=== PATIENT | female | born 1990 | race Native Hawaiian/Other Pacific Islander ===

== ENCOUNTER 2019-04-04 12:06 | Emergency (ER) | payer OTHER ==
[2019-04-04 12:18] VITALS: BP 97/58; PULSE 54; RESP 18; TEMP 97.6; O2SAT 100
--- NOTE | 2019-04-04 13:10 | ED PDOC ---
HPI: Abdomen Time Seen by Provider: 04/04/19 12:40 Chief Complaint (Nursing): Abdominal Pain Chief Complaint (Provider): abdominal pain History Per: Patient History/Exam Limitations: no limitations Additional Complaint(s): 29 y/o F with no significant PMH who was brought in by ambulance due to severe lower abdominal pain that began with feeling lightheaded and becoming diaphoretic about 1hr prior to arrival. Pt then developed severe lower abdominal pain that lasted about 30 minutes prompting her to call an ambulance. She denies fever, N/V, diarrhea, dysuria, urinary frequency, vaginal discharge. Last normal BM was yesterday. She states that she is due to receive her menstrual period today but has not started bleeding yet. Currently states that she feels better and would like to go home. Past Medical History Reviewed: Historical Data, Nursing Documentation, Vital Signs Vital Signs: Last Vital Signs Temp 97.6 F 04/04/19 12:15 Pulse 54 L 04/04/19 12:15 Resp 18 04/04/19 12:15 BP 97/58 L 04/04/19 12:15 Pulse Ox 100 04/04/19 12:15 Primary Care Provider: DoctorClaire - Medical History PMH: No Chronic Diseases - Surgical History Surgical History: No Surg Hx - Family History Family History: States: Unknown Family Hx - Allergies Allergies/Adverse Reactions: Allergies Allergy/AdvReac Type Severity Reaction Status Date / Time No Known Allergies Allergy Verified 04/04/19 12:14 Review of Systems Constitutional: Negative for: Fever Gastrointestinal: Positive for: Abdominal Pain. Negative for: Nausea, Vomiting, Diarrhea, Constipation Genitourinary Female: Negative for: Dysuria, Frequency, Vaginal Discharge, Vaginal Bleeding Physical Exam - Reviewed Nursing Documentation Reviewed: Yes Vital Signs Reviewed: Yes - Physical Exam Appears: Positive for: Uncomfortable Skin: Positive for: Pallor Eye Exam: Negative for: Conjunctival injection (pale conjunctiva) Cardiovascular/Chest: Positive for: Regular Rate, Rhythm Respiratory: Positive for: Normal Breath Sounds Gastrointestinal/Abdominal: Positive for: Normal Exam Neurological/Psych: Positive for: Awake, Alert, Oriented - ECG O2 Sat by Pulse Oximetry: 100 Medical Decision Making Medical Decision Making: Patient states that she does not desire any testing or further evaluation. Pt a dvised several times in the presence of her nurse, Janneth, as well as supervising physician Dr. Delgadillo, that she appears pale and would benefit from investigation of pallor and abdominal symptoms as she could be bleeding. Pt continued to re-iterate that she felt well and did not desire any further treatment or investigation stating that she had normal lab work in December 2018. Pt signed out AMA. She was strongly encouraged to return to ER if her symptoms returned and to follow up with primary care doctor for investigation of possible anemia. Pt demonstrated understanding. Disposition - Clinical Impression Clinical Impression: Pallor, Abdominal pain in female - Patient ED Disposition Is Patient to be Admitted: No - Disposition Disposition: Against Medical Advice Disposition Time: 13:00 Condition: UNKNOWN Forms: [facility] (Gabonese)
== END 2019-04-04 13:00 | disposition left against medical advice (07) ==
LOC: H.ER 12:06
DX: R23.1 Pallor (principal); R10.2 Pelvic and perineal pain